=== PATIENT | female | born 1985 | race Caucasian/White ===

== ENCOUNTER 2018-02-12 12:37 | Emergency (ER) | payer SELFPAY ==
[~2018-02-12] VITALS: Ht 165.1 cm; Wt 103.2 kg
[2018-02-12 12:45] VITALS: TEMP 98.2
[2018-02-12 15:39] LABS: BASO # 0.1 (0.0-0.2); BASO % 0.7 % (0.0-2.0); EOS # 0.3 (0.0-0.7); EOS % 4.3 % (0-4.0); GRAN # 4.2 (1.4-6.5); HEMATOCRIT 41.2 % (37.0-47.0); HEMOGLOBIN 14.1 g/dl (12.5-16.0); MEAN CELL VOLUME 90 fl (80.0-100.0); MEAN CORPUSCULAR HEMOGLOBIN 31 pg (27.0-31.0); MEAN CORPUSCULAR HGB CONC 34 g/dl (33.0-37.0); MEAN PLATELET VOLUME 10.1 fl (7.4-10.4); MONO # 0.6 (0.1-0.6); MONO % 7.7 % (1.7-9.3); PLATELET COUNT 228 K/mm3 (130-400); RED BLOOD COUNT 4.59 M/mm3 (4.10-5.30); REDCELL DISTRIBUTION WIDTH-CV 12.9 % (11.5-14.5)
[2018-02-12 15:59] LABS: COLLECTION METHOD CLEAN CATCH
[2018-02-12 16:04] LABS: ALBUMIN 4.1 gm/dL (3.5-5.0); BILIRUBIN,TOTAL 0.3 mg/dL (0.0-1.0); C-REACTIVE PROTEIN 0.9 mg/dL (0.0-0.9); CALCIUM 9.1 mg/dL (8.4-10.2); CREATININE, serum 0.74 mg/dL (0.52-1.25); POTASSIUM 3.7 mmol/L (3.4-5.0); TOTAL PROTEIN 7.2 gm/dL (6.4-8.2)
[2018-02-12 16:07] LABS: MUCOUS Present /lpf; PH 6 (5-8); SQUAMOUS EPITHELIAL 0-2 /hpf; URINE APPEARANCE Clear; URINE BACTERIA None Seen /hpf; URINE BILIRUBIN Negative (NEGATIVE); URINE BLOOD Negative (NEGATIVE); URINE COLOR Yellow; URINE GLUCOSE Negative (NEGATIVE); URINE KETONE Negative (NEGATIVE); URINE LEUKOCYTE ESTERASE Negative (NEGATIVE); URINE NITRATE Negative (NEGATIVE); URINE PROTEIN(semi-quant) Negative (NEGATIVE); URINE RBC 0-2 /hpf; URINE UROBILINOGEN Negative (NEGATIVE)
[2018-02-12 17:04] VITALS: BP 111/63; PULSE 78
[2018-02-13] MEDS ORDERED: WELLBUTRIN SR150 M1 PO (12:16)
[2018-02-13] MEDS ORDERED: LEXAPRO 10MG10 MG PO (12:17)
== END 2018-02-12 17:05 | disposition home or self-care (01) ==
LOC: COL.ER 12:37
PROVIDERS: Family Medicine
DX: K52.9 Noninfective gastroenteritis and colitis, unspecified (principal); K62.5 Hemorrhage of anus and rectum; Z98.890 Other specified postprocedural states
CPT/HCPCS: J2405; J7030

== ENCOUNTER 2018-07-20 11:47 | Emergency (ER) | payer SELFPAY ==
[~2018-07-20] VITALS: Ht 162.6 cm; Wt 109.1 kg
[~2018-07-20 11:47] MED LIST: LEXAPRO 10MG10 MG PO; WELLBUTRIN SR150 M1 PO
[2018-07-20 11:52] VITALS: TEMP 98.2
[2018-07-20 12:23] LABS: BASO % 0.6 % (0.0-2.0); EOS # 0.3 (0.0-0.7); EOS % 4.2 % (0-4.0); GRAN # 4.3 (1.4-6.5); GRAN % 64.2 % (42.2-75.2); HEMATOCRIT 39.6 % (37.0-47.0); HEMOGLOBIN 13.6 g/dl (12.5-16.0); LYMPH # 1.5 (1.2-3.4); LYMPH % 21.6 % (20.0-51.0); MEAN CELL VOLUME 90 fl (80.0-100.0); MEAN CORPUSCULAR HEMOGLOBIN 31 pg (27.0-31.0); MEAN CORPUSCULAR HGB CONC 34 g/dl (33.0-37.0); MEAN PLATELET VOLUME 10.3 fl (7.4-10.4); MONO # 0.6 (0.1-0.6); MONO % 9.1 % (1.7-9.3); PLATELET COUNT 205 K/mm3 (130-400); RED BLOOD COUNT 4.41 M/mm3 (4.10-5.30); REDCELL DISTRIBUTION WIDTH-CV 12.3 % (11.5-14.5)
[2018-07-20 12:29] LABS: PROTHROMBIN TIME 11.5 SECONDS (9.7-12.8)
[2018-07-20 12:33] LABS: ALBUMIN 3.9 gm/dL (3.5-5.0); BILIRUBIN,TOTAL 0.3 mg/dL (0.0-1.0); CALCIUM 9.1 mg/dL (8.4-10.2); CREATININE, serum 0.69 mg/dL (0.52-1.25); POTASSIUM 3.8 mmol/L (3.4-5.0); TOTAL PROTEIN 6.9 gm/dL (6.4-8.2)
[2018-07-20] MEDS ORDERED: CIPRO 500MG TA500 MG PO (14:59)
[2018-07-20] MEDS ORDERED: FLAGYL500 MG PO (14:59)
[2018-07-20] MEDS ORDERED: NORCO 325 MG-51 TAB PO (14:59)
[2018-07-20 15:01] VITALS: BP 107/73; PULSE 74
== END 2018-07-20 15:17 | disposition home or self-care (01) ==
LOC: COL.ER 11:47
PROVIDERS: Emergency Medicine
DX: K52.9 Noninfective gastroenteritis and colitis, unspecified (principal)
CPT/HCPCS: J0780; J1170; J7030; Q9967

== ENCOUNTER → 2018-08-19 | Outpatient (CLI) | payer OTHER, BC ==
[~2018-08-19] MED LIST changes: +CIPRO 500MG TA500 MG PO; +FLAGYL500 MG PO; +FLEXERIL 1010 MG/TAB PO; +IMITREX50 MG PO; +NORCO 325 MG-51 TAB PO; +SYNTHROID0.05 MG/TA PO; +TOPROL XL 25MG25 MG PO
== END ==
LOC: COL.RAD 14:00
DX: M19.012 Primary osteoarthritis, left shoulder (principal)

== ENCOUNTER → 2019-03-11 | Outpatient (CLI) | payer BC | LOC: COL.RAD 13:30 | DX: R41.3 Other amnesia (principal); R10.2 Pelvic and perineal pain ==

== ENCOUNTER → 2019-09-26 | Outpatient (CLI) | payer BC | LOC: COL.RAD 12:26 | DX: R19.00 Intra-abdominal and pelvic swelling, mass and lump, unspecified site (principal) ==

== ENCOUNTER 2020-07-16 19:24 | Emergency (ER) | payer BC ==
[~2020-07-16] VITALS: Ht 165.1 cm; Wt 90.9 kg
[2020-07-16] MEDS ORDERED: NORVASC 5MG5 MG/TAB PO (21:39)
[2020-07-16 21:59] VITALS: BP 106/66; PULSE 70; TEMP 98.2
== END 2020-07-16 22:00 | disposition home or self-care (01) ==
LOC: COL.ER 19:24
DX: T78.3XXA Angioneurotic edema, initial encounter (principal); R11.2 Nausea with vomiting, unspecified; I10 Essential (primary) hypertension; F41.9 Anxiety disorder, unspecified; F32.9 Major depressive disorder, single episode, unspecified; E03.9 Hypothyroidism, unspecified; F17.200 Nicotine dependence, unspecified, uncomplicated; Z88.0 Allergy status to penicillin; Z88.1 Allergy status to other antibiotic agents; Z88.6 Allergy status to analgesic agent; Z79.890 Hormone replacement therapy; X58.XXXA Exposure to other specified factors, initial encounter
CPT/HCPCS: J1200; J2405; J2550; J7030

== ENCOUNTER → 2020-12-23 | Outpatient (CLI) | payer BC ==
[~2020-12-23] MED LIST changes: +NORVASC 5MG5 MG/TAB PO
== END ==
LOC: MC.RAD 07:44
DX: N63.20 Unspecified lump in the left breast, unspecified quadrant (principal)

== ENCOUNTER 2021-11-01 13:31 | Emergency (ER) | payer BC ==
[~2021-11-01] VITALS: Ht 165.1 cm; Wt 122.7 kg
[2021-11-01 13:47] VITALS: TEMP 98.2
[2021-11-01] MEDS ORDERED: OMNICEF 300MG300 MG PO (14:17)
[2021-11-01 14:40] VITALS: BP 120/81; PULSE 80
== END 2021-11-01 14:44 | disposition home or self-care (01) ==
LOC: COL.ER 13:31
DX: H66.91 Otitis media, unspecified, right ear (principal); R07.9 Chest pain, unspecified; R06.02 Shortness of breath; F17.210 Nicotine dependence, cigarettes, uncomplicated; Z20.822 Contact with and (suspected) exposure to COVID-19; Z88.1 Allergy status to other antibiotic agents

== ENCOUNTER 2021-11-08 23:23 | Emergency (ER) | payer BC ==
[~2021-11-08] VITALS: Ht 162.6 cm; Wt 109.1 kg
[~2021-11-08 23:23] MED LIST changes: +OMNICEF 300MG300 MG PO
[2021-11-08 23:50] VITALS: TEMP 97.6
[2021-11-09] MEDS ORDERED: ZOFRAN ODT4 MG PO (00:41)
[2021-11-09 01:53] VITALS: BP 118/76; PULSE 71
== END 2021-11-09 01:53 | disposition home or self-care (01) ==
LOC: COL.ER 23:23
DX: G43.909 Migraine, unspecified, not intractable, without status migrainosus (principal); H60.93 Unspecified otitis externa, bilateral
CPT/HCPCS: J1200; J1885; J2765; J7030